=== PATIENT | male | born 1980 | race Caucasian/White ===

== ENCOUNTER 2022-07-11 05:25 | Day surgery (SDC) | payer OTHER, SELFPAY ==
--- NOTE | 2022-07-04 13:58 | RAD_ITS ---
STUDY: X-RAY CHEST REASON FOR EXAM: Male, 42 years old. PREOP TECHNIQUE: PA and lateral views of the chest. COMPARISON: None. FINDINGS: The lungs are clear and expanded. There is no demonstrated pleural abnormality. Normal size heart. Normal mediastinum and chi. Normal visualized pulmonary arteries. Normal visualized aortic arch and descending thoracic aorta. There are diffuse degenerative changes of the visualized thoracic spine. Normal visualized ribs, clavicles, and shoulders. There is no demonstrated abnormality of the visualized soft tissue structures of the upper abdomen. RAD/Chest PA and Lateral IMPRESSION: Normal x-ray examination of the chest. Electronically Signed: Bandar Espinoza MD at 14:53 EDT ,
[2022-07-04 14:50] LABS: Absolute Lymphocyte Count 3.28 X10^3/uL (0.83-4.51); Absolute Neutrophil Count 10.5 X10^3/uL (2.0-7.7); Basophil# 0.04 X10^3/uL; Basophil% 0.3 % (0-1); Eosinophil# 0.24 X10^3/uL; Eosinophils% 1.6 % (0-5); Hematocrit 47.5 % (40-54); Hemoglobin 15.6 g/dL (13.0-16.5); Lymphocyte # 3.28 X10^3/ul (0.83-4.51); Lymphocyte % 21.5 % (19-41); Mean Corp Hgb Conc 32.8 g/dL (32-36); Mean Corpuscular Hgb 29.5 pg (27.0-32.0); Mean Corpuscular Volume 89.8 fL (80-94); Mean Platelet Vol. 9.8 fl (6.2-12.0); Monocyte# 1.09 X10^3/uL; Monocyte% 7.1 % (0-10); NRBC Flagged by Analyzer 0 % (0-5); Neutrophil # 10.51 X10^3/uL (2.7-7.7); Neutrophil % 68.8 % (47-70); Platelet Count 300 K/mm3 (150-450); RBC Distribution Width CV 12.7 % (11.6-14.6); RBC Distribution Width SD 41.9 fl (35.1-43.9); Red Blood Count 5.29 M/mm3 (4.6-6.2); White Blood Count 15.3 K/mm3 (4.4-11.0)
[2022-07-04 15:10] LABS: Partial Thromboplast Time 30.2 Seconds (24.1-36.2)
[2022-07-04 15:22] LABS: Anion Gap 10 (5-15); BUN 23 mg/dL (7-18); BUN/Creat Ratio 24.8 RATIO (10-20); Calcium,Total 9.3 mg/dL (8.5-10.1); Chloride 105 mmol/L (98-107); Creatinine, Serum 0.93 mg/dL (0.70-1.30); EST Glomerular Filtration Rate 96 mL/min (>60); Est Glom Filt Rate - Afr Amer 116 mL/min (>60); Glucose 107 mg/dL (74-106); Potassium 4.1 mmol/L (3.5-5.1); Sodium Level 142 mmol/L (136-145)
[2022-07-11] MEDS: Lactated Ringers 1,000 ML 15 ML IV ×2 (06:20→08:31)
[2022-07-11 06:21] VITALS: BP 135/83; PULSE 74; RESP 18; TEMP 36.7; O2SAT 96; BMI 33.2
[2022-07-11] MEDS: Cefazolin 2 GM in 0.9% Normal Saline 100 ML IV (07:35)
[2022-07-11] MEDS: Epinephrine (1 mg/ml) 1 MG/ML VIAL (08:05)
[2022-07-11 09:28] VITALS: BP 125/76; BP 135/83; PULSE 73; RESP 16; TEMP 37.1; O2SAT 93
--- NOTE | 2022-07-11 09:29 | DCINST_ITS ---
Discharge Instructions Follow Up Care Test Results: Test results from this visit will be discussed in further detail at your follow- up appointment, if applicable. Discharge Plan Admission Primary Reason for Your Visit: Right shoulder surgery Attending Provider: Emeka Yin Primary Care Provider: Christina Dumont Instructions Additional Instructions / Restrictions: Follow preprinted instructions from your surgeons office. Discharge Orders/Prescriptions Prescriptions: New oxycodone 5 mg tablet 5 mg PO Q4H PRN (Reason: pain) 7 Days Qty: 42 0RF Continued atorvastatin 20 mg Tablet 20 mg PO QHS divalproex 500 mg Tablet,Delayed Release (Dr/Ec) 1,000 mg PO QHS acetaminophen 500 mg Tablet 1,000 mg PO Q6H PRN (Reason: Pain) amlodipine 10 mg Tablet 10 mg PO QHS divalproex 500 mg Tablet Extended Release 24 Hr 500 mg PO DAILY lisinopril 40 mg Tablet 60 mg PO QHS escitalopram oxalate [Lexapro] 10 mg Tablet 10 mg PO QHS Referrals / Follow Up: Christina Dumont MD [Primary Care Provider] - Emeka Yin DO [Med Staff - Active Staff] - Disposition Disposition (needs filled in before D/C Order can be placed): Home, Self Care
[2022-07-11 09:30] VITALS: BP 119/71; BP 135/83; PULSE 70; RESP 16; O2SAT 93
--- NOTE | 2022-07-11 09:30 | PCM.OPRPT ---
Report of Operation Date of Procedure: 07/11/22 Description of Surgical Findings:: Preoperative diagnosis: 1. Right shoulder partial rotator cuff tear 2. Right shoulder subacromial impingement syndrome 3. Symptomatic right acromioclavicular posttraumatic tissue 4. SLAP tear right shoulder with biceps tendinitis Postoperative diagnosis: 1. Right shoulder partial rotator cuff tear 2. Right shoulder subacromial impingement syndrome 3. Symptomatic right acromioclavicular posttraumatic tissue 4. SLAP tear right shoulder with biceps tendinitis Procedure: 1. Diagnostic and operative right shoulder arthroscopy with rotator cuff repair 2. Right shoulder subacromial decompression 3. Right shoulder arthroscopic biceps tenodesis 4. Right shoulder arthroscopic debridement of labrum, capsular synovitis, posttraumatic AC joint scar tissue, subacromial bursitis Primary Surgeon: Emeka Yin DO Sheet Turner: So Sommers PA-C Anesthesia: General LMA with interscalene block Anesthesiologist: Rommel Browning MD Complications: None apparent Specimen: None Estimated blood loss: 10 cc IV fluids: 1500 cc crystalloid Urine output: None Packing/drains: None Implants: Arthrex 4.75 mm swivel lock anchor x2 Intraoperative findings: Type II SLAP tear, extensive right shoulder subacromial bursitis, postsurgical scar tissue at the AC joint impinging upon the supraspinatus muscle belly, 60% tendon thickness supraspinatus tear, downsloping subacromial spur Preoperative indications: This is a 42-year-old male seen in the outpatient setting for right shoulder pain. Patient had a traumatic injury to his right shoulder where he sustained a AC joint injury and had a stellar utilization procedure performed approximately 20 years ago. He has had persistent pain at the AC joint since injury. Over the last several years he has been developing a new more lateral shoulder pain. He attempted nonoperative management in the form of anti-inflammatories, injections, physical therapy. MRI was obtained by another provider and demonstrated partial tearing of the supraspinatus, SLAP tear, impingement like changes from a subacromial spur and postsurgical/posttraumatic changes at the AC joint. Given his failure of nonoperative treatment, I recommended surgical intervention in the form of right shoulder diagnostic and operative arthroscopy with rotator cuff debridement versus repair, biceps tenodesis, subacromial decompression and debridement of postsurgical/posttraumatic changes at the distal clavicle. I reviewed the risks, benefits, alternatives the procedure with the patient. Risks included but were not limited to bleeding, infection, loss of life or limb, nonhealing tendon, persistent pain, persistent weakness, stiffness, need for prolonged immobilization, prolonged therapy, DVT or PE, risk of anesthesia, neurovascular injury, need for additional surgery. Patient expressed understanding these risks and wished to proceed with surgery. Description of procedure: Patient was identified in the preoperative holding area by name, medical record number, and date of . Informed consent was confirmed with the patient. The operative extremity was marked with a surgical marker. All questions were answered to the patient's satisfaction. An interscalene block was administered prior to the procedure by the anesthesia staff. At time of his procedure, patient was was brought to the operative suite and positioned supine on a standard operating table. General anesthesia was induced and LMA placed. Patient was then positioned in the lateral decubitus position with all bony prominences well-padded and an axillary roll was placed. He was held in position with a beanbag. We spun the bed approximately 20 degrees. We then prepped and draped the operative upper extremity in a normal, sterile orthopedic fashion. We performed a timeout with all parties in attendance in agreement with the side, site, and operation be performed. No concerns were voiced and we elected to proceed. 2 g Ancef was administered prior to the incision by anesthesia staff. Operative upper extremity was placed in traction utilizing a traction sleeve. 15 pounds was applied to the right upper extremity throughout the majority of the case. I first outlined the bony landmarks of the shoulder. I established a standard posterior portal with an 11 blade scalpel. Blunt tipped trocar in cannula was inserted into the glenohumeral joint. The joint was insufflated with normal saline solution with epinephrine in the first 2 bags. Trocar was removed and diagnostic arthroscopy was commenced. I established a standard interval portal anteriorly with localization via spinal needle. Skin was sharply incised with 11 blade scalpel. I then placed a switching stick and the incision, dilated the capsulotomy and placed a rigid cannula in the anterior portal for tenodesis suture passage and hardware placement. Diagnostic arthroscopy revealed an unstable biceps anchor consistent with type II SLAP tear, pristine glenohumeral cartilage, minimal fraying at the subscapularis insertion, approximately 60% articular sided tearing of the supraspinatus. I debrided the articular side of the supraspinatus. No full-thickness tears were identified. I then turned my attention to the biceps tendon. I performed a loop and tack fixation of the biceps tendon first passing a fiber link suture around the biceps tendon approximately 1 cm from the labrum and then pierced the tendon with the tail of the suture, locking mechanism. I then performed a biceps tenotomy with the radiofrequency ablator. Biceps tendon was allowed to retract into the groove. I then performed a biceps tenodesis high in the bicipital groove by first punching with the vendor supplied bone punch. Utilizing the commuter pilot hole, I tensioned the sutures and placed a 4.75 mm bio composite swivel lock anchor in the prepared bone socket. Sutures were cut flush with the tenodesis. I then turned my attention to the supraspinatus. An 0 PDS was used to tag the articular sided tear of the supraspinatus. I then withdrew the arthroscope. Utilizing the blunt tipped trocar, I reentered the shoulder in the subacromial space. I established a standard lateral portal under direct visualization with a spinal needle. A 1 blade scalpel was used to sharply incise the skin. Extensive subacromial bursitis was noted and debrided with a radial resector. I identified the tagging suture. Rotator cuff tissue was probed and I was able to probe easily through the remaining cuff tissue. I elected to take down the remaining tissue of the anterior portion of the supraspinatus with the radiofrequency ablator. Rotator cuff footprint was lightly decorticated with an arthroscopic bur. Tagging suture was removed. I then turned my attention to the acromion. The undersurface of the acromion was skeletonized with the radiofrequency ablator as well as peeling off the undersurface and attachment of the coracoacromial ligament. There was a downsloping likely type II spur off the distal portion of the acromion. This was resected utilizing the 5.5 mm bur to a flat acromion. I then identified the posttraumatic/postsurgical changes at the AC joint. It appeared to be impinging down upon the muscle belly of the supraspinatus. Scar tissue was able to be debrided with the radial resector. I was able to identify Ethibond suture from prior AC joint repair. This was left in place to avoid destabilizing the AC joint. No significant bony spurs appeared to be impinging upon the supraspinatus. I then turned our attention back to the supraspinatus tear. I established under direct visualization a supplementary posterior superior lateral portal for better visualization of the tear. The tear was crescent in shape. I proceeded with a ripstop type single anchor lateral row repair. A fiber tape was passed utilizing the retrograde scorpion suture passer through first the anterior and then posterior limbs of the crescent tear. We then passed a fiber loop medial to the fiber tape. These were then tensioned. They were passed through the eyelet of a 4.75 mm swivel lock anchor. I then selected a point approximately 5 mm lateral to the supraspinatus footprint. The Arthrex anchor punch was then passed in appropriate depth and withdrawn. The anchor was then placed and sutures tensioned. A swivel lock was impacted and subsequently tightened to an appropriate depth with excellent, appropriate tension of the suture. The tear appeared to reapproximate to its picayune footprint very well without excessive tension. There were no identifiable dogears. The subacromial space was then thoroughly lavaged. Arthroscopic instruments were removed. Portal sites were closed in interrupted [id number] fashion with 4-0 nylon suture. Sterile compression dressing was applied. Patient was then placed in UltraSling. He was able to be safely extubated in the operative suite. He was transferred to his gurney and subsequently to PACU in stable condition. Postoperative plan: Patient will be nonweightbearing to the operative extremity. He should maintain his sling at all times unless to shower. He may shower on postoperative day #2 if no significant drainage. He will follow up in approximately 2 weeks for suture removal. We will plan to initiate twice daily aspirin for DVT prophylaxis starting tomorrow. Prescription for oxycodone was sent to his pharmacy for postoperative analgesia. Need for skilled event marketing assistant: So Sommers PA-C was critical to the outcome of the case. During the course of the procedure the physician event marketing assistant played a vital role. Her intimate knowledge of my steps in the procedure aided in safe and expedient completion of the procedure. The PA played a vital role in positioning particularly in obtaining the appropriate positioning. The PA was also vital in the retraction of soft tissues during the exposure and protecting vital structures. The PA was also vital and obtaining tendon reduction and assisting with hardware placement. She also played a vital role in closure and sling application under my direct supervision.
[2022-07-11 09:45] VITALS: BP 110/62; BP 135/83; PULSE 67; RESP 16; O2SAT 96
[2022-07-11 10:00] VITALS: BP 116/75; BP 135/83; PULSE 67; RESP 16; TEMP 36.6; O2SAT 95
[2022-07-11 10:55] VITALS: BP 134/83; BP 135/83; PULSE 65; RESP 16; TEMP 36.1; O2SAT 98
== END 2022-07-11 10:57 | disposition home or self-care (01) ==
LOC: SDC 05:30 → AC 05:30
PROVIDERS: Anesthesiology; PCP Internal Medicine; Referring Provider Student in an Organized Health Care Education/Training Program; Visit Provider Student in an Organized Health Care Education/Training Program
PROC: (CPT 29827; principal; 2022-07-11 07:10)
DX: S43.431A Superior glenoid labrum lesion of right shoulder, initial encounter (principal); G40.909 Epilepsy, unspecified, not intractable, without status epilepticus; M75.41 Impingement syndrome of right shoulder; M75.111 Incomplete rotator cuff tear or rupture of right shoulder, not specified as traumatic; M75.51 Bursitis of right shoulder; F41.9 Anxiety disorder, unspecified; E78.00 Pure hypercholesterolemia, unspecified; I10 Essential (primary) hypertension; F17.210 Nicotine dependence, cigarettes, uncomplicated; M19.111 Post-traumatic osteoarthritis, right shoulder; M75.21 Bicipital tendinitis, right shoulder; E66.8 Other obesity; Z68.33 Body mass index [BMI] 33.0-33.9, adult; K21.9 Gastro-esophageal reflux disease without esophagitis; Z86.16 Personal history of COVID-19
CPT/HCPCS: 29827; 29826; 29806; 29828; 01630; 64450; 36415; 71046; 80048; 85025; 85730; 93005; C1713; J7120; J2405